=== PATIENT | male | born 1980 | race Caucasian/White ===

== ENCOUNTER → 2019-08-01 16:58 | Outpatient (CLI) | payer OTHER, SELFPAY ==
[2019-08-01 17:16] LABS: Absolute Lymphocyte Count 0.84 X10^3/uL (0.83-4.51); Absolute Neutrophil Count 5.1 X10^3/uL (2.0-7.7); Basophil# 0.04 X10^3/uL; Basophil% 0.6 % (0-1); Eosinophil# 0.03 X10^3/uL; Eosinophils% 0.4 % (0-5); Hematocrit 44.4 % (40-54); Hemoglobin 15.3 g/dL (13.0-16.5); Lymphocyte # 0.84 X10^3/ul (4.0); Lymphocyte % 12.6 % (19-41); Mean Corp Hgb Conc 34.5 g/dL (32-36); Mean Corpuscular Hgb 35.7 pg (27.0-32.0); Mean Corpuscular Volume 103.5 fL (80-94); Mean Platelet Vol. 9.5 fl (6.2-12.0); Monocyte# 0.69 X10^3/uL; Monocyte% 10.3 % (0-10); NRBC Flagged by Analyzer 0 % (0-5); Neutrophil # 5.07 X10^3/uL (2.7-7.7); Neutrophil % 75.8 % (47-70); Platelet Count 162 K/mm3 (150-450); RBC Distribution Width CV 12.2 % (11.6-14.6); RBC Distribution Width SD 46.4 fl (35.1-43.9); Red Blood Count 4.29 M/mm3 (4.6-6.2); White Blood Count 6.7 K/mm3 (4.4-11.0)
[2019-08-01 17:34] LABS: ALB/GLOB Ratio 0.9 RATIO (0.9-2.4); AST(SGOT) 283 U/L (15-37); Alanine Aminotransfer ALT/SGPT 127 U/L (16-61); Albumin, Serum 3.6 g/dL (3.2-5.0); Alkaline Phosphatase 132 U/L (45-117); Anion Gap 8 (5-15); BUN 9 mg/dL (7-18); BUN/Creat Ratio 12.9 RATIO (10-20); Chloride 98 mmol/L (98-107); EST Glomerular Filtration Rate 133 mL/min (>60); Est Glom Filt Rate - Afr Amer 161 mL/min (>60); Glucose 101 mg/dL (74-106); Potassium 3.4 mmol/L (3.5-5.1); Protein, Total 7.6 g/dL (6.4-8.2); Sodium Level 136 mmol/L (136-145)
== END ==
PROVIDERS: Referring Provider Nurse Practitioner Family; Visit Provider Nurse Practitioner Family
DX: R16.0 Hepatomegaly, not elsewhere classified (principal)
CPT/HCPCS: 36415; 80053; 85025

== ENCOUNTER → 2019-08-06 08:20 | Outpatient (CLI) | payer OTHER, SELFPAY ==
--- NOTE | 2019-08-06 08:46 | US_ITS ---
STUDY: ABDOMINAL ULTRASOUND - RIGHT UPPER QUADRANT REASON FOR VISIT: Male, 39 years old ENLARGED LIVER TECHNIQUE: Ultrasound evaluation of the right upper quadrant was performed with real-time and static carr-scale imaging. TECHNICAL QUALITY: Adequate. COMPARISON: None. FINDINGS: Liver: The liver is enlarged and measures 20.2 cm. There is increased echogenicity consistent with fatty infiltration. The bile ducts are within normal limits. There is hepatic color flow. The direction of portal flow is hepatopetal. There is no demonstrated mass lesion. Gallbladder: Normal distended gallbladder. The gallbladder wall is thickened and measures 5 mm. There is a negative sonographic Aguilar''s sign. There is a small amount of pericholecystic fluid. There are no gallstones. Common Bile Duct (C.B.D.): The common bile duct measures 4.0 mm. Pancreas: Normal size of the head, body and tail of the pancreas. There is normal echogenicity of the pancreas. There is no demonstrated pancreatic mass or cyst. Right Kidney: Normal size of the right kidney. The right kidney measures 13.2 cm x 6 cm x 4.6 cm. Normal renal cortex. The right cortex measures 1.2 cm. There is no demonstrated renal mass or cyst. There is no right hydronephrosis. US/Abdomen Limited IMPRESSION: Hepatomegaly and fatty infiltration of the liver. Thickening of the gallbladder wall with a small amount of pericholecystic fluid. Electronically Signed: Kasi Michaels, at 15:51 EDT , Service support ,
[2019-08-06 09:45] LABS: AST(SGOT) 182 U/L (15-37); Alanine Aminotransfer ALT/SGPT 134 U/L (16-61); Albumin, Serum 3.2 g/dL (3.2-5.0); Alkaline Phosphatase 110 U/L (45-117); Bilirubin, Direct 0.26 mg/dL (0.00-0.30); GGTP 778 U/L (15-85); Globulin 3.8 g/dL (2.2-4.2); Iron 97 ug/dL (65-175); Iron Binding Capacity,Total 192 ug/dL (250-450)
[2019-08-07 06:07] LABS: HEPATITIS B SURFACE AG Negative (Negative); Hepatitis A IgM Antibody Negative (Negative); Hepatitis B Core AB IgM Negative (Negative)
[2019-08-09 16:12] LABS: Hep C Antibodies <0.1 s/co ratio (0.0-0.9)
== END ==
PROVIDERS: PCP Student in an Organized Health Care Education/Training Program; Referring Provider Nurse Practitioner Family; Visit Provider Nurse Practitioner Family
DX: K76.0 Fatty (change of) liver, not elsewhere classified (principal)
CPT/HCPCS: 36415; 76705; 80074; 80076; 82977; 83540; 83550

== ENCOUNTER → 2020-07-01 14:24 | Outpatient (CLI) | payer OTHER, SELFPAY ==
--- NOTE | 2020-07-01 14:41 | RAD_ITS ---
STUDY: X-RAY CHEST REASON FOR EXAM: Male, 40 years old. RHONCHI RIGHT LIG BASE PALPS TECHNIQUE: PA and lateral views of the chest. COMPARISON: None. FINDINGS: The lungs are clear and expanded. Blunting of the left costophrenic angle consistent with a tiny left pleural effusion. Normal size heart. Normal mediastinum and jaxson. Normal visualized pulmonary arteries. Normal visualized aortic arch and descending thoracic aorta. Normal visualized thoracic spine. Normal visualized ribs, clavicles, and shoulders. There is no demonstrated abnormality of the visualized soft tissue structures of the upper abdomen. RAD/Chest PA and Lateral IMPRESSION: Tiny left pleural effusion. Electronically Signed: Joseluis Hector MD at 6:08 EDT Tel , Service support ,
[2020-07-01 14:53] LABS: Hematocrit 38.2 % (40-54); Hemoglobin 13.2 g/dL (13.0-16.5); Mean Corp Hgb Conc 34.6 g/dL (32-36); Mean Corpuscular Hgb 34.2 pg (27.0-32.0); Mean Platelet Vol. 9.5 fl (6.2-12.0); Platelet Count 111 K/mm3 (150-450); RBC Distribution Width CV 13.4 % (11.6-14.6); RBC Distribution Width SD 49.1 fl (35.1-43.9); Red Blood Count 3.86 M/mm3 (4.6-6.2); White Blood Count 7.2 K/mm3 (4.4-11.0)
[2020-07-01 15:00] LABS: International Normalized Ratio 1.6; Prothrombin Time (Protime)PT. 18.5 SECONDS (11.7-14.9)
[2020-07-01 15:01] LABS: Partial Thromboplast Time 43.4 Seconds (24.1-36.2)
[2020-07-01 15:12] LABS: Hemoglobin A1c 4.5 % (3.8-5.6)
[2020-07-01 16:05] LABS: AST(SGOT) 196 U/L (15-37); Alanine Aminotransfer ALT/SGPT 71 U/L (16-61); Albumin, Serum 2.6 g/dL (3.2-5.0); Alkaline Phosphatase 174 U/L (45-117); Anion Gap 4 (5-15); BUN 10 mg/dL (7-18); BUN/Creat Ratio 13.1 RATIO (10-20); Bilirubin, Direct 2.03 mg/dL (0.00-0.30); Calcium,Total 8.3 mg/dL (8.5-10.1); Chloride 101 mmol/L (98-107); Cholesterol 112 mg/dL (200); Creatinine, Serum 0.76 mg/dL (0.70-1.30); EST Glomerular Filtration Rate 119 mL/min (>60); Est Glom Filt Rate - Afr Amer 144 mL/min (>60); GGTP 539 U/L (15-85); Globulin 4.5 g/dL (2.2-4.2); Glucose 106 mg/dL (74-106); High Density Lipoprotein 20 mg/dL; Protein, Total 7.1 g/dL (6.4-8.2); Sodium Level 136 mmol/L (136-145); Triglycerides 127 mg/dL; Very Low Density Lipoprotein 25 mg/dL (5-40)
[2020-07-01 17:07] LABS: Vitamin B12 1128 pg/mL (211-911)
[2020-07-11 07:49] LABS: Vitamin B1, Thiamine 71.2 nmol/L (66.5-200.0)
== END ==
PROVIDERS: PCP Student in an Organized Health Care Education/Training Program; Referring Provider Student in an Organized Health Care Education/Training Program; Visit Provider Student in an Organized Health Care Education/Training Program
DX: R09.89 Other specified symptoms and signs involving the circulatory and respiratory systems (principal); R06.89 Other abnormalities of breathing; R00.2 Palpitations
CPT/HCPCS: 36415; 71046; 80048; 80061; 80076; 82607; 82746; 82977; 83036; 84425; 85027; 85610; 85730

== ENCOUNTER → 2020-07-08 07:29 | Outpatient (CLI) | payer OTHER, SELFPAY ==
--- NOTE | 2020-07-08 07:32 | US_ITS ---
STUDY: ABDOMINAL ULTRASOUND REASON FOR EXAM: Male, 40 years old. ELEVATED LIVER ENZYMES, FATTY LIVER, ETOH, UMBILICUS HERNIA TECHNIQUE: Transabdominal ultrasound was performed with real-time and static carr scale imaging. TECHNICAL QUALITY: Adequate. COMPARISON: None. FINDINGS: Liver: The liver is enlarged and measures 22 cm. There is increased echogenicity consistent with fatty infiltration. The bile ducts are within normal limits. There is hepatic color flow. The direction of portal flow is hepatopetal. There is no demonstrated mass lesion. Portal vein measurement: Gallbladder: Normal distended gallbladder. The gallbladder wall is thickened and edematous measuring 6 mm. There is a negative sonographic Aguilar''s sign. There is pericholecystic fluid. There are no gallstones. Common Bile Duct (C.B.D.): The common bile duct measures 5.1 mm. Pancreas: There is nonvisualization of the pancreas due to overlying bowel gas. Spleen: There is splenomegaly. The spleen measures 17.4 cm x 6.3 cm x 6.5 cm. Right Kidney: Normal size of the right kidney. The right kidney measures 13.1 cm x 4.8 cm x 4.3 cm. Normal renal cortex. The right cortex measures 1.4 cm. There is no demonstrated renal mass or cyst. There is no right hydronephrosis. Left Kidney: Normal size of the left kidney. The left kidney measures 12.3 cm x 2.7 cm x 6 cm. Normal renal cortex. The left cortex measures 1.4 cm. 2 cysts are seen. The larger measures 1.6 cm x 1.2 cm x 0.9 cm. There is no left hydronephrosis. Aorta: Unremarkable I.V.C.: The IVC is patent. Ascites. US/Abdomen Complete IMPRESSION: Hepatosplenomegaly. Diffuse fatty infiltration of the liver. Thickened gallbladder wall. Left renal cysts. Electronically Signed: Kasi Michaels MD at 8:48 EDT , Service support ,
[2020-07-08 10:26] LABS: ALB/GLOB Ratio 0.6 RATIO (0.9-2.4); AST(SGOT) 169 U/L (15-37); Alanine Aminotransfer ALT/SGPT 75 U/L (16-61); Albumin, Serum 2.6 g/dL (3.2-5.0); Alkaline Phosphatase 173 U/L (45-117); Anion Gap 7 (5-15); BUN 7 mg/dL (7-18); BUN/Creat Ratio 10.3 RATIO (10-20); Calcium,Total 8.2 mg/dL (8.5-10.1); Chloride 99 mmol/L (98-107); Creatinine, Serum 0.68 mg/dL (0.70-1.30); EST Glomerular Filtration Rate 137 mL/min (>60); Est Glom Filt Rate - Afr Amer 165 mL/min (>60); Globulin 4.5 g/dL (2.2-4.2); Glucose 80 mg/dL (74-106); Potassium 3.2 mmol/L (3.5-5.1); Protein, Total 7.1 g/dL (6.4-8.2); Sodium Level 137 mmol/L (136-145)
== END ==
PROVIDERS: PCP Student in an Organized Health Care Education/Training Program; Referring Provider Student in an Organized Health Care Education/Training Program; Visit Provider Student in an Organized Health Care Education/Training Program
DX: R74.8 Abnormal levels of other serum enzymes (principal); K42.9 Umbilical hernia without obstruction or gangrene; K76.0 Fatty (change of) liver, not elsewhere classified; Z72.89 Other problems related to lifestyle; K70.10 Alcoholic hepatitis without ascites
CPT/HCPCS: 36415; 76700; 80053